=== PATIENT | female | born 1980 ===

== ENCOUNTER 2020-06-05 21:32 | Emergency (ER) | payer SELFPAY ==
--- NOTE | 2020-06-06 00:48 | EDPHYS ---
Physician Documentation [facility] Name: Shalonda Uribe Age: 39 yrs Sex: Female : 1980 Arrival Date: 06/05/2020 Time: 21:34 Bed 8 Private MD: ED Physician Sameer Bill HPI: 06/06 00:10 This 39 yrs old Female presents to ER via Ambulatory with complaints of Itching. mh7 00:11 This 39 yrs old Female presents to ER via Ambulatory with complaints of Itching. mh7 00:11 Itching all over. Onset: The symptoms/episode began/occurred 2 day(s) ago. Severity of mh7 symptoms: At their worst the symptoms were moderate yesterday, in the emergency department the symptoms have improved moderately. 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 - Social history:: Smoking status: Patient denies any tobacco usage or history of. ROS: 06/06 00:11 Constitutional: Negative for fever, chills, and weight loss, Eyes: Negative for injury, mh7 pain, redness, and discharge, ENT: Negative for injury, pain, and discharge, Neck: Negative for injury, pain, and swelling, Cardiovascular: Negative for chest pain, palpitations, and edema, Respiratory: Negative for shortness of breath, cough, wheezing, and pleuritic chest pain, Abdomen/GI: Negative for abdominal pain, nausea, vomiting, diarrhea, and constipation, Back: Negative for injury and pain, : Negative for injury, bleeding, discharge, and swelling, MS/Extremity: Negative for injury and deformity. Neuro: Negative for headache, weakness, numbness, tingling, and seizure, Psych: Negative for depression, anxiety, suicide ideation, homicidal ideation, and hallucinations, Allergy/Immunology: Negative for hives, rash, and allergies, Endocrine: Negative for neck swelling, polydipsia, polyuria, polyphagia, and marked weight changes, Hematologic/Lymphatic: Negative for swollen nodes, abnormal bleeding, and unusual bruising. Skin: Negative for abrasions, abscesses, avulsion, burn, cellulitis, diaphoresis, discoloration, ecchymosis, erythema, hematoma, jaundice, lesions, pallor, puncture, rash, swelling, ulceration, acute changes. Exam: 00:44 Constitutional: This is a well developed, well nourished patient who is awake, alert, mh7 and in no acute distress. Head/Face: Normocephalic, atraumatic. Eyes: Pupils equal round and reactive to light, extra-ocular motions intact. Lids and lashes normal. Conjunctiva and sclera are non-icteric and not injected. Cornea within normal limits. Periorbital areas with no swelling, redness, or edema. ENT: Nares patent. No nasal discharge, no septal abnormalities noted. Tympanic membranes are normal and external auditory canals are clear. Oropharynx with no redness, swelling, or masses, exudates, or evidence of obstruction, uvula midline. Mucous membranes moist. Neck: Trachea midline, no thyromegaly or masses palpated, and no cervical lymphadenopathy. Supple, full range of motion without nuchal rigidity, or vertebral point tenderness. No Meningismus. Chest/axilla: Normal chest wall appearance and motion. Nontender with no deformity. No lesions are appreciated. Cardiovascular: Regular rate and rhythm with a normal S1 and S2. No gallops, murmurs, or rubs. Normal PMI, no JVD. No pulse deficits. Respiratory: Lungs have equal breath sounds bilaterally, clear to auscultation and percussion. No rales, rhonchi or wheezes noted. No increased work of breathing, no retractions or nasal flaring. Abdomen/GI: Soft, non-tender, with normal bowel sounds. No distension or tympany. No guarding or rebound. No evidence of tenderness throughout. Back: No spinal tenderness. No costovertebral tenderness. Full range of motion. 00:44 Skin: Warm, dry with normal turgor. Normal color with no rashes, no lesions, and no evidence of cellulitis. MS/ Extremity: Pulses equal, no cyanosis. Neurovascular intact. Full, normal range of motion. Neuro: Awake and alert, GCS 15, oriented to person, place, time, and situation. Cranial nerves II-XII grossly intact. Motor strength 5/5 in all extremities. Sensory grossly intact. Cerebellar exam normal. Normal gait. Psych: Awake, alert, with orientation to person, place and time. Behavior, mood, and affect are within normal limits. 00:44 : CVA tenderness, is absent, Gravid exam: Fundal height: consistent with gestational age, Bladder: is normal. Vital Signs: 06/05 21:50 BP 153 / 105; Pulse 113; Resp 16 S; Temp 97.8(TE); Pulse Ox 100% on R/A; Weight 63.05 ca1 kg (R); Height 5 ft. 4 in. (162.56 cm) (R); 06/06 00:45 BP 132 / 85; Pulse 105; Resp 19; Pulse Ox 99% ; rr5 06/05 21:50 Body Mass Index 23.86 (63.05 kg, 162.56 cm) ca1 MDM: 00:44 Differential Diagnosis Hives, Rash, Pruritis. Data reviewed: vital signs, nurses notes. [facility] Counseling: I had a detailed discussion with the patient and/or guardian regarding: the historical points, exam findings, and any diagnostic results supporting the discharge/admit diagnosis, the need for outpatient follow up, to return to the emergency department if symptoms worsen or persist or if there are any questions or concerns that arise at home. Response to treatment: the patient's symptoms have mildly improved after treatment. 00:47 Patient medically screened. [facility] Administered Medications: No medications were administered Disposition: 06/06/20 00:47 Discharged to Home. Impression: Pruritus, unspecified. - Condition is Stable. - Discharge Instructions: Pruritus. - Prescriptions for Benadryl 25 mg Oral Capsule - take 1 capsule by ORAL route every 6 hours As needed; 30 tablet. - Medication Reconciliation Form, Thank You Letter, Antibiotic Education, Prescription Opioid Use form. - Follow up: Private Physician; When: 1 - 2 days; Reason: Worsening of condition, Recheck today's complaints, Continuance of care, Re-evaluation by your physician. - Problem is new. - Symptoms have improved. Signatures: Etienne Yusuf RN RN rr5 Niru Morris RN RN ca1 Sameer Bill MD MD 7 Corrections: (The following items were deleted from the chart) 01:08 00:47 06/06/2020 00:47 Discharged to Home. Impression: Pruritus, unspecified. Condition rr5 is Stable. Forms are Medication Reconciliation Form, Thank You Letter, Antibiotic Education, Prescription Opioid Use. Follow up: Private Physician; When: 1 - 2 days; Reason: Worsening of condition, Recheck today's complaints, Continuance of care, Re-evaluation by your physician. Problem is new. Symptoms have improved. mh7
--- NOTE | 2020-06-06 00:48 | ER ---
Nurse's Notes [facility] Name: Shalonda Uribe Age: 39 yrs Sex: Female : 1980 Arrival Date: 06/05/2020 Time: 21:34 Bed 8 Private MD: Diagnosis: Pruritus, unspecified Presentation: 06/05 21:46 Chief complaint: Patient states: Itching all over x 2 days. Worse today. Can't take it ca1 no more. Denies ingesting anything new. Denies applying anything new on the skin. Worse itch on sole of feet and palm of hands. Worse at night. x 29 weeks. Took Benadryl, some relief. Coronavirus screen: Client denies travel out of the [place] in the last 14 days. At this time, the client does not indicate any symptoms associated with coronavirus-19. Ebola Screen: Patient negative for fever greater than or equal to 101.5 degrees Fahrenheit, and additional compatible Ebola Virus Disease symptoms Patient denies exposure to infectious person. Patient denies travel to an Ebola-affected area in the 21 days before illness onset. No symptoms or risks identified at this time. Initial Sepsis Screen: Does the patient meet any 2 criteria? No. Patient's initial sepsis screen is negative. Does the patient have a suspected source of infection? No. Patient's initial sepsis screen is negative. Risk Assessment: Do you want to hurt yourself or someone else? Patient reports no desire to harm self or others. Onset of symptoms was June 05, 2020. 21:46 Method Of Arrival: Ambulatory ca1 21:46 Acuity: HIEN 3 ca1 23:37 Onset: The symptoms/episode began/occurred suddenly, 2 day(s) ago. rr5 23:38 Anaphylaxis evaluation, no signs or symptoms of anaphylaxis were noted. 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 - Social history:: Smoking status: Patient denies any tobacco usage or history of. Screenin:38 Abuse screen: Denies threats or abuse. Denies injuries from another. Nutritional rv screening: No deficits noted. Tuberculosis screening: No symptoms or risk factors identified. Fall Risk None identified. Assessment: 23:37 General: Appears uncomfortable, Behavior is restless. Pain: Denies pain. Neuro: Level rv of Consciousness is awake, alert, obeys commands, Oriented to person, place, time, situation. Cardiovascular: Patient's skin is warm and dry. Respiratory: Airway is patent Respiratory effort is even, unlabored, Breath sounds are clear bilaterally. Derm: Skin is jaundiced, red. 06/06 01:08 Reassessment: call made to [phone] multiple times to inform for the discharge rr5 instruction did not answer the call. Vital Signs: 06/05 21:50 BP 153 / 105; Pulse 113; Resp 16 S; Temp 97.8(TE); Pulse Ox 100% on R/A; Weight 63.05 ca1 kg (R); Height 5 ft. 4 in. (162.56 cm) (R); 06/06 00:45 BP 132 / 85; Pulse 105; Resp 19; Pulse Ox 99% ; rr5 06/05 21:50 Body Mass Index 23.86 (63.05 kg, 162.56 cm) ca1 Vitals: 00:24 Heart Tones 150s. rv ED Course: 06/05 21:34 Patient arrived in ED. bp1 21:48 Triage completed. ca1 21:49 Arm band placed on right wrist. ca1 23:25 Chago Butler RN is Primary Nurse. rv 23:28 Sameer Bill MD is Attending Physician. mh7 23:37 Inserted saline lock: 20 gauge in right hand, using aseptic technique. Blood collected. rv 23:38 Patient has correct armband on for positive identification. 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 Pulse rv ox on. NIBP on. 06/06 01:04 No provider procedures requiring assistance completed. rv 01:05 No provider procedures requiring assistance completed. IV discontinued, intact, IV rr5 cannula removed by patient and at the bedside. Administered Medications: No medications were administered Outcome: 00:47 Discharge ordered by . mh7 01:05 Discharged to home ambulatory. rr5 01:05 Condition: stable 01:05 Discharge instructions given to ED provider reassess the patient. patient left without signing the discharge paper, Instructed on discharge instructions, follow up and referral plans. 01:08 Patient left the ED. rr5 Signatures: Chago Butler, RN RN Etienne Tay RN RN rr5 Niru Morris RN RN ca1 Winnie Olivo Maurice, MD MD mh7 Corrections: (The following items were deleted from the chart) 01:48 01:05 IV discontinued, intact, bleeding controlled, No redness/swelling at site. rr5 Pressure dressing applied, rr5
[2020-06-06 01:22] VITALS: BP 153/105; TEMP 97.8; O2SAT 100
== END 2020-06-06 01:08 | disposition home or self-care (01) ==
LOC: ER 21:32
DX: L29.9 Pruritus, unspecified (principal); I10 Essential (primary) hypertension
CPT/HCPCS: 99284